=== PATIENT | male | born 1955 | race Caucasian/White ===

== ENCOUNTER 2025-02-14 14:47 | Emergency (ER) | payer MEDICARE, SELFPAY ==
--- NOTE | 2025-02-14 14:56 | ED_ITS ---
HPI - Wound/Laceration General Chief Complaint: Wound/Laceration Stated Complaint: Stitches Time Seen by Provider: 02/14/25 14:56 Source: patient Mode of arrival: ambulatory Limitations: no limitations History of Present Illness HPI narrative: Patient is a 69 year male who presents with concern for suture site infection. Patient states he had sutures placed on open fracture 6 weeks ago at [facility]. States the sutures were clear and he was not told that he needed to have them removed. Patient states it is now red, swollen, and tender to touch. Had [id number] use a scalpel and cut into tissue to try to find sutures to remove. Patient states some clear fluid drained from wound and felt better from the pressure relief. Is requesting further exploration of area to remove sutures Related Data Home Medications ?Medication ?Instructions ?Recorded ?Confirmed ?Last Taken ?Type paroxetine HCl 20 mg tablet mg PO 11/02/19 Unknown History atorvastatin 40 mg tablet mg 02/14/25 Unknown History meloxicam 15 mg tablet mg 02/14/25 Unknown History Allergies Allergy/AdvReac Type Severity Reaction Status Date / Time codeine Allergy Severe Swelling Verified 02/14/25 15:01 of Lip/Tongue/Throat Review of Systems 2 Review of Systems: All systems reviewed & are unremarkable except as noted in HPI and below Constitutional: Constitutional: Denies body ache(s), Denies chills, Denies fatigue, Denies fever(s), Denies headache(s), Denies malaise and Denies weakness Eyes: Eyes: Denies blurry vision, Denies irritation and Denies loss of vision ENT: Denies otalgia, Denies headache(s), Denies nasal discharge, Denies sinus pain and Denies sore throat Cardiovascular: Cardiovascular: Denies chest pain, Denies irregular heart rhythm and Denies dyspnea Respiratory: Respiratory: Denies dyspnea Gastrointestinal: Gastrointestinal: Denies abdominal pain, Denies melena, Denies hematochezia, Denies diarrhea, Denies nausea and Denies vomiting Musculoskeletal: Musculoskeletal: Denies back pain, Denies myalgias and Denies arthralgias Integumentary/Breasts: Skin/Breast: Denies pruritus, Denies rash and Reports wounds Neurologic: Denies headache(s), Denies loss of vision and Denies weakness Psychiatric: Psychiatric: Reports no additional psychiatric complaints Endocrine: Endocrine: Denies fatigue PMFSH Social History Social History Smoking status: Current every day smoker Comments At time of signature, agree with nursing past medical, surgical, social and family history. There is no relevant family history pertinent to the presenting complaint. Exam 2 Const: General: cooperative, healthy appearing, comfortable, no acute distress and well nourished Nutritional Appearance: well nourished O rientation/consciousness: patient oriented x3 Limitations: no limitations HENMT: Head: normal to inspection, normocephalic and atraumatic Ears: h earing grossly normal bilaterally and external ears normal Face/Nose/Sinus: N ormal external nose present, normal facial exam and face symmetric Face and sinus: normal facial exam and face symmetric Mouth: Yes lip normal Eyes: General: appearance normal, both eyes and all related structures A lignment and Position: alignment normal and position normal Periorbital: p eriorbital findings normal Eyelids: eyelids normal Pupils: Equal, round and reactive pupils present EOM: EOMs intact bilaterally Neck: Neck: normal visual inspection, full ROM and supple Chest: Chest palpation & inspection: normal inspection of the chest Resp: Effort & Inspection: normal respiratory effort and able to speak in complete sentences Auscultation: clear to auscultation bilaterally Cardio: Rate: regular rate Rhythm: regular rhythm Heart sounds: S1 normal heart sound present and S2 normal heart sound present GI: Inspection: normal to inspection Skin: General skin exam: normal color and no rashes or lesions noted Neuro: General: patient oriented x3 and moves all extremities Cranial nerves: Yes Equal, round and reactive pupils present Speech: normal speech Gait exam (Neuro): Normal gait present Extrem: General: normal to inspection, full ROM and no edema Right upper extremity: Extremity exam: right hand normal to inspection, normal capillary refill, neuromotor exam normal wrist extension normal, thumb opposition normal, thumb IP flexion normal, thumb ADduction normal and fingers 2-5 ABduction normal, neurosensory exam normal radial nerve sensory function normal, ulnar nerve sensory function normal, median nerve sensory function normal and digital nerve sensory function normal, tendon exam normal of all digits extensor tendon, flexor digitorum profundus and flexor digitorum superficialis, tenderness of the 3rd digit at the distal phalanx and at the DIP joint, vascular exam radial pulse present and normal capillary refill, normal ROM of fingers, warmth of the 3rd digit at the distal phalanx and at the DIP joint, swelling of the 3rd digit at the DIP joint and laceration 3rd digit dorsal aspect distal linear (1 cm), superficial, with motor nerve function intact and with sensation intact Hand/finger images: 1. 1 cm superficial laceration on top of previous suture site. Surrounding erythema, warmth and swelling. No active drainage, no sutures visualized Psych: Appearance: grossly normal and well kempt Mental Status: mental status grossly normal Speech and movement: Normal speech and movement present Affect: normal affect Attitude: cooperative Thought process: Normal thought process present Course Course Emergency Course: Patient is aware of diagnosis, understands and agrees to treatment plan. Anticipatory guidance given. Patient agrees to follow-up as directed and is aware of reasons to seek care at the emergency department. Portions of this record may have been created with voice recognition software Level of Care: Express Care Visit Vital Signs Vital signs: Reviewed MDM - Wound/Laceration MDM Narrative Medical decision making narrative: Patient states he had open fracture roughly 6 weeks ago and had sutures placed in right 3rd digit just distal of the DIP joint. 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 Patient states he had 3 to for white/clear sutures placed on right hand and was never told to have them removed. Patient states her skin has grown over sutures but he can still feel them inside. Reports it is not painful, warm to touch and red. Patient did not follow up after surgery and did not try to call surgeon office or PCP today. Patient took but upon himself to attempt to remove sutures himself. Laceration is superficial and not bleeding. Explained to patient the limitations of urgent care and that we would not be able to re-open wound to explore and remove possible sutures(no sutures visible). Explained that sutures are most likely dissolvable and they have not fully disolved at this time. Explained we will treat patient for infection. Referred patient to Dr. Moss. Patient states he is going fishing. I reiterated how important it is for wound to stay clean to prevent worsening or new infection. Patient states to he recovered and out of river water. Will cover patient on doxycycline and Augmentin along with providing Bactroban ointment. Pt well hydrated appearing, in no respiratory distress, hemodynamically stable. Recommend supportive care. The patient is stable at time of discharge the clinical impression was discussed and the patient was given the opportunity to ask questions, which were addressed as completely as possible given the information available at present. Anticipatory guidance and return to care precautions were discussed and the importance of primary care follow-up was stressed and encouraged. The patient voiced understanding of the plan, indications to return, and the need for follow-up. Exam findings show no acute concerns or changes Patient is appropriate for outpatient treatment and follow-up. Differential Diagnosis Differential diagnosis: Likely laceration and other Medical Records Attestation: I reviewed the patient's medical records. Discharge Plan Discharge Clinical Impression: Infected wound Patient Disposition: Home Condition: Stable Instructions: Wound Infection (ED) Additional Instructions: Clean wound daily and especially after fishing. You have been prescribed Doxycycline today.It may make your skin more sensitive to sunlight than normal. Make sure you wear sunscreen at all times when outside while on the medication. Wound dressed with topical Bacitracin and sterile gauze. Apply Bactroban after warm soaks BID. Take antibiotics as prescribed. Keep wound covered. Go to the emergency department if you have worsening redness, swelling or pus. Patient Language: [place]ar[place] Prescriptions: New doxycycline monohydrate 100 mg tablet 100 mg PO BID 10 Days Qty: 20 0RF amoxicillin-pot clavulanate 875-125 mg tablet 1 tablet PO Q12H 10 Days Qty: 20 0RF mupirocin 2 % ointment 1 applic topical BID Qty: 15 0RF No Action paroxetine HCl 20 mg tablet PO atorvastatin 40 mg tablet meloxicam 15 mg tablet Follow-up/Referrals: Dorian Mo MD [Physician] - 3 Days (Suture site infection on open wound.) Time of Disposition: 15:30
[2025-02-14 15:00] VITALS: BP 123/59; PULSE 86; RESP 18; TEMP 36.3; O2SAT 96
--- OUTSIDE RECORDS SUMMARY | 2025-02-14 15:17 | XMS_ITS | Clinical Summary ---
Author Organization [facility] Address [address] [place] [address] Care Team Providers Care Exhibitions Curator Name Role Phone Stanley Schuster MD Primary Care Provider + Allergies Active Allergy Reactions Criticality Noted Date Comments Codeine Swollen tongue High Medications PARoxetine (PAXIL) 20 mg tabletIndicatio ns:Anxiety with Depression Take 20 mg by mouth nightly Active MULTIVITAMIN ORALIndications :supplement Take 1 tablet by mouth every morning Active acetaminophen (TYLENOL) 325 mg tablet Take 650 mg by mouth every 6 (six) hours as needed for pain Active aspirin 81 mg chewable tablet Take 1 tablet (81 mg total) by mouth daily 30 tablet 08/27/2020 Active diazePAM (VALIUM) 10 mg tablet Take 1 tablet (10 mg total) by mouth every 12 (twelve) hours as needed for anxiety 30 tablet 08/29/2020 Active oxyCODONE (ROXICODONE) 5 mg immediate release tabletIndicatio ns:Pain Take 1 tablet (5 mg total) by mouth every 4 (four) hours as needed for pain 10 tablet 01/01/2025 Active Active Problems Problem Noted Date Diagnosed Date Basal cell carcinoma of nose 07/23/2020 Overview (07/23/2020): Added automatically from request for surgery [id number] Basal cell carcinoma of left side of nose 2019 Overview (06/16/2020): Added automatically from request for surgery [id number] 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 His blood pressure has returned to normal since analgesics were administered without requiring any antihypertensive therapy. Will continue to monitor blood pressure for now, would attempt pain control for further elevated BP readings before administering antihypertensive therapy. 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 Cholecystitis 11/26/2019 Overview (11/27/2019): Added automatically from request for surgery [id number] Non compliance w medication regimen 06/09/2018 Tobacco abuse 06/09/2018 Assessment & Plan (06/09/2018 12:50 PM CDT): couselled regarding tobacco / discussed low dose ct scan for lung cancer screening declines Routine physical examination 06/07/2018 Other male erectile dysfunction 06/07/2018 Anxiety 06/07/2018 Depression Assessment & Plan (11/27/2019 8:56 AM SUPERVISOR [employer]ACH[employer]): Can continue home Paxil. Smoking Assessment & Plan (11/27/2019 8:57 AM SUPERVISOR [employer]ACHINE): Encourage smoking cessation. Patient declined nicotine replacement therapy at this time, encouraged to inform staff if he changes his mind. Encounters Date Type Department Care Team Description 01/09/2025 Plan of Care Documentation [facility] Occupational Therapy [address] [place] [address] [place] [id number] 01/08/2025 3:05 PM [employer] Therapy [facility] Occupational Therapy [address] [place] [address] [address] [place] [id number] Sher Hager, OT Mallet finger of right finger(s) (Primary Dx) 01/08/2025 1:00 PM [employer] Office Visit [facility] Department of Surgery [address] [place] [address] [place] [phone] Dougie Corey MD Mallet finger of right finger(s) (Primary Dx); Displaced fracture of distal phalanx of left middle finger, initial encounter for open fracture 01/01/2025 5:44 PM [employer] - 01/01/2025 10:17 PM [facility] Emergency [facility] Emergency Department [address] [place] [address] Mihai Mehta MD Mallet finger of right finger(s) (Primary Dx); Displaced fracture of distal phalanx of left middle finger, initial encounter for open fracture Discharge Disposition: Discharge to home or self care 01/01/2025 10:09 AM [employer] - 01/01/2025 12:27 PM [facility] Emergency [facility] Emergency Department [address] [place] [address] Keith Ascencio MD Finger laceration, initial encounter (Primary Dx); Open displaced fracture of distal phalanx of left middle finger, initial encounter; Open displaced fracture of middle phalanx of right middle finger, initial encounter; Closed nondisplaced fracture of phalanx of right index finger, unspecified phalanx, initial encounter Discharge Disposition: Discharge to a short term hospital for IP from Last 3 Months Immunizations Immunization Administration Dates Next Due Tdap 01/01/2025 Surgical History Surgery Date Site/Laterality Comments CHOLECYSTECTOMY 11/28/2019 Medical History Medical History Date Comments Depression Smoking Basal cell carcinoma left nose Family History Medical History Relation Name Comments Heart attack Father Anesthesia problems Neg Hx Relation Name Status Comments Father Social History Tobacco Use Types Packs/Day Years Used Date Smoking Tobacco: Every Day Cigarettes 2 40 Smokeless Tobacco: Current Alcohol Use Standard Drinks/Week Comments Yes 12 (1 standard drink = 0.6 oz pu re alcohol) AUDIT-C Answer Date Recorded Frequency of Alcohol Consumption Never 11/26/2019 Average Number of Drinks Not on file 020 Frequency of Binge Drinking Not on file 11/08 Personal Safety Answer Date Recorded Have you ever been in or are you currently in a harmful physical or emotional relationship or is someone making you feel afraid or unsafe? Denies 01/01/2025 Sex and Gender Information Value Date Recorded Sex Assigned at Not on file Legal Sex Male 3:28 PM [employer] Gender Identity Not on file Sexual Orientation Not on file Obstetrics History Last Filed Vital Signs Vital Sign Reading Time Taken Comments Blood Pressure 127/85 01/01/2025 10:05 PM [employer] Pulse 84 01/01/2025 10:05 PM [employer] Temperature 36.7 C (98 F) 01/01/2025 6:05 PM [employer] Respiratory Rate 20 01/01/2025 10:05 PM [employer] Oxygen Saturation 97% 01/01/2025 10:05 PM [employer] Inhaled Oxygen Concentration - - Weight 103 kg (227 lb) 01/01/2025 2:30 PM [employer] Height 177.8 cm (5' 10 ) 01/01/2025 2:30 PM [employer] Body Mass Index 32.57 01/01/2025 2:30 PM [employer] Plan of Treatment Health Maintenance Due Date Last Done Comments Colon Cancer Screening-Colonoscopy 1957 Depression Screening 1957 Hepatitis C Screening 1957 Hepatitis B Screening 1975 Pneumococcal vaccine 65+ (1 of 2 - PCV) 1976 Lung Cancer Screening 2007 Zoster Vaccine (1 of 2) 2007 Prostate Cancer Screening-PSA 06/05/2020 06/05/2018 Fall Risk Assessment 08/27/2021 08/27/2020 Abdominal Aortic Aneurysm (AAA) Screen 2022 Well Visit 65+ 2022 07/16/2019, 06/07/2018 Influenza Vaccine (Season Ended) 2025 DTaP/Tdap/Td Vaccine (2 - Td or Tdap) 01/01/2035 Medical Devices Implanted Type Area Promotional Demonstrator Device Identifier Shelf Expiration Date Model / Serial / Lot [employer] Allian [address] [place] 2mm Ring Pin Ultrasonic Doppler 20mhz Fruit Cutter Anastomosis Latex Free - [id number] Implanted:Qty: 1 on 08/27/2020 by Rufino Garland III, MD at [facility] Left: Face [employer] Allian [id number] 06/26/2024 2752 / / [id number] Procedures Procedure Name Priority Date/Time Associated Diagnosis Comments XR HAND LEFT 3 OR MORE VIEWS ED 01/01/2025 11:13 AM [employer] XR HAND RIGHT 3 OR MORE VIEWS ED 01/01/2025 11:13 AM SUPERVISOR [employer] CT ABDOMEN PELVIS W CONTRAST ED 11/26/2019 5:21 PM [employer] PSA SCREEN Routine 06/05/2018 8:25 AM CDT Elevated prostate specific antigen (PSA) from Last 3 Months or Most Recently Relevant to Health Maintenance Results * XR Hand Right 3 or More Views (01/01/2025 11:13 AM SU[employer]) Anatomical Region Laterality Modality Upper Extremities, Hand Right Computed Radiography 01/01/2025 11:1 6 AM [employer] Narrative 01/01/2025 11:24 AM [employer] EXAM DESCRIPTION: XR HAND RIGHT 3 OR MORE VIEWS; XR HAND LEFT 3 OR MORE VIEWS REASON FOR STUDY: injury c/o a laceration to the left middle finger. Pt also has swelling to right middle finger. Pt had a cuellar slam down on his fingers TECHNIQUE: Three views of each hand are submitted for interpretation. COMPARISON: None available FINDINGS: Right hand: Mild radiocarpal osteoarthritis. Mild triscaphe osteoarthritis and thumb basal joint osteoarthritis. Mild polyarticular interphalangeal joint osteoarthritis.. There is an acute displaced fracture of the long finger distal phalanx dorsal base with intra-articular extension. Small calcific densities project dorsal to the ring finger and index finger distal phalanx bases, probably degenerative in etiology. There is lucency at the index finger dorsal phalanx base on the lateral view only, which could be superimposed lucency or a nondisplaced intra-articular fracture. Please correlate with point tenderness.. No radiopaque foreign body is seen. Left hand: Mild triscaphe and thumb basal joint osteoarthritis. Mild polyarticular interphalangeal joint osteoarthritis. There is a displaced and comminuted long finger distal phalanx tuft fracture with overlying soft tissue laceration. There is also a displaced long finger distal phalanx dorsal base fracture with intra-articular extension.. No radiopaque foreign body is seen. IMPRESSION: Displaced and comminuted left long finger distal phalanx tuft fracture with overlying soft tissue laceration. Displaced left long finger distal phalanx dorsal base fracture with intra-articular extension. Displaced right long finger distal phalanx dorsal base fracture with intra-articular extension. Lucency at the right index finger dorsal phalanx base on the lateral view only, which could be superimposed lucency or a nondisplaced intra-articular fracture. Please correlate with point tenderness. THIS IS AN ELECTRONICALLY VERIFIED FINAL REPORT 01/01/2025 11:24 AM - Electronically signed by Tristin Sosa M.D. MZ: LUIS Report ID: [id number] Reading Location: [id number] Procedure Note Tristin Sosa MD - 01/01/2025 EXAM DESCRIPTION: XR HAND RIGHT 3 OR MORE VIEWS; XR HAND LEFT 3 OR MOREVIEWS REASON FOR STUDY: injury c/o a laceration to the left middle finger. Pt also has swelling to right middle finger. Pt had a cuellar slam down on his fingers TECHNIQUE: Three views of each hand are submitted for interpretation. COMPARISON: None available FINDINGS: Right hand: Mild radiocarpal osteoarthritis. Mild triscaphe osteoarthritis and thumb basal joint osteoarthritis. Mild polyarticular interphalangeal joint osteoarthritis.. There is an acute displaced fracture of the long finger distal phalanx dorsal base with intra-articular extension. Small calcific densities project dorsal to the ring finger and index finger distalphalanx bases, probably degenerative in etiology. There is lucency at the index finger dorsal phalanx base on the lateral view only, which could be superimposed lucency or a nondisplaced intra-articular fracture. Please correlate with point tenderness.. No radiopaque foreign body is seen. Left hand: Mild triscaphe and thumb basal joint osteoarthritis. Mild polyarticular interphalangeal joint osteoarthritis. There is a displaced and comminuted long finger distal phalanx tuft fracture with overlying soft tissue laceration. There is also a displaced long finger distal phalanx dorsalbase fracture with intra-articular extension.. No radiopaque foreign body isseen. IMPRESSION: Displaced and comminuted left long finger distal phalanx tuft fracturewith overlying soft tissue laceration. Displaced left long finger distal phalanx dorsal base fracture with intra-articular extension. Displaced right long finger distal phalanx dorsal base fracture with intra-articular extension. Lucency at the right index finger dorsal phalanx base on the lateral view only, which could be superimposed lucency or a nondisplacedintra-articular fracture. Please correlate with point tenderness. THIS IS AN ELECTRONICALLY VERIFIED FINAL REPORT 01/01/2025 11:24 AM - Electronically signed by Tristin Sosa M.D. MZ: LUIS Report ID: [id number] Reading Location: [id number] Keith Ascencio MD IMG XR PROCEDURES Final Result * XR Hand Left 3 or More Views (01/01/2025 11:13 AM SUPER[employer]) Anatomical Region Laterality Modality Upper Extremities, Hand Left Computed Radiography 01/01/2025 11:1 6 AM [employer] Narrative 01/01/2025 11:24 AM [employer] EXAM DESCRIPTION: XR HAND RIGHT 3 OR MORE VIEWS; XR HAND LEFT 3 OR MORE VIEWS REASON FOR STUDY: injury c/o a laceration to the left middle finger. Pt also has swelling to right middle finger. Pt had a cuellar slam down on his fingers TECHNIQUE: Three views of each hand are submitted for interpretation. COMPARISON: None available FINDINGS: Right hand: Mild radiocarpal osteoarthritis. Mild triscaphe osteoarthritis and thumb basal joint osteoarthritis. Mild polyarticular interphalangeal joint osteoarthritis.. There is an acute displaced fracture of the long finger distal phalanx dorsal base with intra-articular extension. Small calcific densities project dorsal to the ring finger and index finger distal phalanx bases, probably degenerative in etiology. There is lucency at the index finger dorsal phalanx base on the lateral view only, which could be superimposed lucency or a nondisplaced intra-articular fracture. Please correlate with point tenderness.. No radiopaque foreign body is seen. Left hand: Mild triscaphe and thumb basal joint osteoarthritis. Mild polyarticular interphalangeal joint osteoarthritis. There is a displaced and comminuted long finger distal phalanx tuft fracture with overlying soft tissue laceration. There is also a displaced long finger distal phalanx dorsal base fracture with intra-articular extension.. No radiopaque foreign body is seen. IMPRESSION: Displaced and comminuted left long finger distal phalanx tuft fracture with overlying soft tissue laceration. Displaced left long finger distal phalanx dorsal base fracture with intra-articular extension. Displaced right long finger distal phalanx dorsal base fracture with intra-articular extension. Lucency at the right index finger dorsal phalanx base on the lateral view only, which could be superimposed lucency or a nondisplaced intra-articular fracture. Please correlate with point tenderness. THIS IS AN ELECTRONICALLY VERIFIED FINAL REPORT 01/01/2025 11:24 AM - Electronically signed by Tristin Sosa M.D. MZ: LUIS Report ID: [id number] Reading Location: [id number] Procedure Note Tristin Sosa MD - 01/01/2025 EXAM DESCRIPTION: XR HAND RIGHT 3 OR MORE VIEWS; XR HAND LEFT 3 OR MOREVIEWS REASON FOR STUDY: injury c/o a laceration to the left middle finger. Pt also has swelling to right middle finger. Pt had a cuellar slam down on his fingers TECHNIQUE: Three views of each hand are submitted for interpretation. COMPARISON: None available FINDINGS: Right hand: Mild radiocarpal osteoarthritis. Mild triscaphe osteoarthritis and thumb basal joint osteoarthritis. Mild polyarticular interphalangeal joint osteoarthritis.. There is an acute displaced fracture of the long finger distal phalanx dorsal base with intra-articular extension. Small calcific densities project dorsal to the ring finger and index finger distalphalanx bases, probably degenerative in etiology. There is lucency at the index finger dorsal phalanx base on the lateral view only, which could be superimposed lucency or a nondisplaced intra-articular fracture. Please correlate with point tenderness.. No radiopaque foreign body is seen. Left hand: Mild triscaphe and thumb basal joint osteoarthritis. Mild polyarticular interphalangeal joint osteoarthritis. There is a displaced and comminuted long finger distal phalanx tuft fracture with overlying soft tissue laceration. There is also a displaced long finger distal phalanx dorsalbase fracture with intra-articular extension.. No radiopaque foreign body isseen. IMPRESSION: Displaced and comminuted left long finger distal phalanx tuft fracturewith overlying soft tissue laceration. Displaced left long finger distal phalanx dorsal base fracture with intra-articular extension. Displaced right long finger distal phalanx dorsal base fracture with intra-articular extension. Lucency at the right index finger dorsal phalanx base on the lateral view only, which could be superimposed lucency or a nondisplacedintra-articular fracture. Please correlate with point tenderness. THIS IS AN ELECTRONICALLY VERIFIED FINAL REPORT 01/01/2025 11:24 AM - Electronically signed by Tristin Sosa M.D. MZ: MZ Report ID: [id number] Reading Location: [place] [address] Keith Ascencio MD IMG XR PROCEDURES Final Result * CT Abdomen Pelvis W Contrast (11/26/2019 5:21 PM SU[employer]) Anatomical Region Laterality Modality Body N/A Computed Tomogra phy 11/26/2019 5:21 PM [employer] Narrative 11/26/2019 6:22 PM [employer] PROCEDURE INFORMATION: Exam: CT Abdomen And Pelvis With Contrast Exam date and time: 11/26/2019 5:21 PM Age: 64 years old Clinical indication: Patient HX: Generalized abdominal pain since Tuesday vomited once; Additional info: Nausea/vomiting TECHNIQUE: Imaging protocol: Computed tomography of the abdomen and pelvis with intravenous contrast. Contrast material: [id number]; Contrast volume: 100 ml; Contrast route: IV; COMPARISON: None. FINDINGS: Lungs: There is atelectasis in the bilateral lung bases. Heart: No cardiomegaly. Liver: The liver is diffusely decreased in density, compatible with hepatic steatosis. Gallbladder and bile ducts: Gallbladder is distended with wall thickening measuring up to 7 mm and mild pericholecystic inflammatory changes. No biliary ductal dilatation. Pancreas: The pancreas is unremarkable. Spleen: The spleen is unremarkable. Adrenals: The adrenal glands are unremarkable. Kidneys and ureters: No hydronephrosis or nephrolithiasis. Stomach and bowel: There is colonic diverticulosis. No evidence of bowel obstruction. No pericolonic inflammatory stranding. Appendix: The appendix is normal. Intraperitoneal space: No significant peritoneal free fluid. No free peritoneal air. Vasculature: No aneurysmal dilation of the aorta. Lymph nodes: No adenopathy. Bladder: Bladder demonstrates wall thickening without associated inflammatory changes, compatible with chronic bladder outlet obstruction from prostatomegaly. Reproductive: There is prostatomegaly. Bones/joints: There is no significant spinal canal stenosis. There are multilevel degenerative changes in the spine. Soft tissues: Multiple small metallic fragments are seen in the soft tissue of the right pelvis. IMPRESSION: 1. Gallbladder is distended with wall thickening measuring up to 7 mm and mild pericholecystic inflammatory changes. Findings are concerning for acute cholecystitis. 2. Hepatic steatosis. 3. There is colonic diverticulosis. THIS DOCUMENT HAS BEEN ELECTRONICALLY SIGNED BY ELIE URIBE MD Procedure Note Elie Uribe MD - 11/26/2019 PROCEDURE INFORMATION: Exam: CT Abdomen And Pelvis With Contrast Exam date and time: 11/26/2019 5:21 PM Age: 64 years old Clinical indication: Patient HX: Generalized abdominal pain since Tuesday vomited once; Additional info: Nausea/vomiting TECHNIQUE: Imaging protocol: Computed tomography of the abdomen and pelvis with intravenous contrast. Contrast material: [id number]; Contrast volume: 100 ml; Contrast route: IV; COMPARISON: None. FINDINGS: Lungs: There is atelectasis in the bilateral lung bases. Heart: No cardiomegaly. Liver: The liver is diffusely decreased in density, compatible withhepatic steatosis. Gallbladder and bile ducts: Gallbladder is distended with wallthickening measuring up to 7 mm and mild pericholecystic inflammatory changes. Nobiliary ductal dilatation. Pancreas: The pancreas is unremarkable. Spleen: The spleen is unremarkable. Adrenals: The adrenal glands are unremarkable. Kidneys and ureters: No hydronephrosis or nephrolithiasis. Stomach and bowel: There is colonic diverticulosis. No evidence of bowel obstruction. No pericolonic inflammatory stranding. Appendix: The appendix is normal. Intraperitoneal space: No significant peritoneal free fluid. No freeperitoneal air. Vasculature: No aneurysmal dilation of the aorta. Lymph nodes: No adenopathy. Bladder: Bladder demonstrates wall thickening without associatedinflammatory changes, compatible with chronic bladder outlet obstruction from prostatomegaly. Reproductive: There is prostatomegaly. Bones/joints: There is no significant spinal canal stenosis. There are multilevel degenerative changes in the spine. Soft tissues: Multiple small metallic fragments are seen in the softtissue of the right pelvis. IMPRESSION: 1. Gallbladder is distended with wall thickening measuring up to 7 mm andmild pericholecystic inflammatory changes. Findings are concerning for acute cholecystitis. 2. Hepatic steatosis. 3. There is colonic diverticulosis. THIS DOCUMENT HAS BEEN ELECTRONICALLY SIGNED BY ELIE URIBE MD Bea James MD IMG CT PROCEDURES F inal Result * PSA screen (06/05/2018 8:25 AM CDT) PSA-Total 2.06 0.10 - 4.00 ng/mL [facility] Blood specimen (specimen) 06/05/2018 8:25 AM CDT 06/05/2018 9:13 PM CDT Narrative BERNARD - 06/05/2018 9:49 PM CDT Ochoa Dias MD LAB BLOOD ORDERABLES Final Result [facility] [id number] Department of Laboratories [place] [id number] from Last 3 Months or Most Recently Relevant to Health Maintenance Insurance [facility] HMO/PPO Address: [address] [address] [place] [address] [facility] CHOICE [facility] HMO/PPO Address: [id number] [place] [address] MEDICARE [facility] Address: [address] [address] [place] [address] [facility] [place] [address] MEDICARE [facility] [place] [address] Advance Directives For more information, please contact: [phone] * Full Code (Latest Code Status on File) Date Activated Date Inactivated Comments 11/27/2019 4:50 PM 11/30/2019 2:50 PM * Full Code Date Activated Date Inactivated Comments 11/26/2019 9:04 PM 11/27/2019 4:50 PM Care Teams Exhibitions Curator Relationship Specialty Start Date End Date Stanley Schuster MD [address] [place] [address] PCP - General 11/26/19
--- OUTSIDE RECORDS SUMMARY | 2025-02-14 15:17 | XMS_ITS | Referral Summary ---
Author Organization [facility] Address [address] [place] [address] Care Team Providers Care Forest Fire Fighter Name Role Phone Stanley Schuster MD Primary Care Provider + Encounters Date Type Department Care Team Description 01/09/2025 Plan of Care Documentation [facility] Occupational Therapy [address] [place] [address] [phone] 01/08/2025 3:05 PM SAFETY COMPLIANCE SPECIALIST Therapy [facility] Occupational Therapy [address] [place] [phone] Sher Hager OT Mallet finger of right finger(s) (Primary Dx) 01/08/2025 1:00 PM SAFETY COMPLIANCE SPECIALIST Office Visit [facility] Department of Surgery [address] [place] [phone] Dougie Corey MD Mallet finger of right finger(s) (Primary Dx); Displaced fracture of distal phalanx of left middle finger, initial encounter for open fracture 01/01/2025 5:44 PM SAFETY COMPLIANCE SPECIALIST - 01/01/2025 10:17 PM SAFETY COMPLIANCE SPECIALIST Emergency [facility] Emergency Department [address] [place] [address] Mihai Mehta MD Mallet finger of right finger(s) (Primary Dx); Displaced fracture of distal phalanx of left middle finger, initial encounter for open fracture Discharge Disposition: Discharge to home or self care 01/01/2025 10:09 AM SAFETY COMPLIANCE SPECIALIST - 01/01/2025 12:27 PM SAFETY COMPLIANCE SPECIALIST Emergency [facility] Emergency Department [address] [place] [address] Keith Ascencio MD Finger laceration, initial encounter (Primary Dx); Open displaced fracture of distal phalanx of left middle finger, initial encounter; Open displaced fracture of middle phalanx of right middle finger, initial encounter; Closed nondisplaced fracture of phalanx of right index finger, unspecified phalanx, initial encounter Discharge Disposition: Discharge to a short term hospital for IP from Last 3 Months Allergies Active Allergy Reactions Criticality Noted Date [...] (07/23/2020): Added automatically from request for surgery [id number] Basal cell carcinoma of left side of nose 2019 Overview (06/16/2020): Added automatically from request for surgery [id number] Neoplasm of soft tissue 05/16/2020 Lesion of nose 05/16/2020 Elevated blood pressure reading 11/27/2019 Assessment & Plan (11/27/2019 8:56 AM SAFETY COMPLIANCE SPECIALIST): The patient's elevated blood pressure on arrival was due to the acute pain of his presenting cholecystitis. His blood pressure has returned to normal since analgesics were administered without requiring any antihypertensive therapy. Will continue to monitor blood pressure for now, would attempt pain control for further elevated BP readings before administering antihypertensive therapy. Acute cholecystitis 11/27/2019 Assessment & Plan (11/27/2019 8:58 AM SAFETY COMPLIANCE SPECIALIST): Cholecystectomy planned this afternoon per surgery. Cholecystitis 11/26/2019 Overview (11/27/2019): Added automatically from request for surgery [id number] Non compliance w medication regimen 06/09/2018 Tobacco abuse 06/09/2018 Assessment & Plan (06/09/2018 12:50 PM CDT): couselled regarding tobacco / discussed low dose ct scan for lung cancer screening declines Routine physical examination 06/07/2018 Other male erectile dysfunction 06/07/2018 Anxiety 06/07/2018 Depression Assessment & Plan (11/27/2019 8:56 AM SAFETY COMPLIANCE SPECIALIST): Can continue home Paxil. Smoking Assessment & Plan (11/27/2019 8:57 AM SAFETY COMPLIANCE SPECIALIST): Encourage smoking cessation. Patient declined nicotine replacement therapy at this time, encouraged to inform staff if he changes his mind. Immunizations Immunization Administration Dates Next Due Tdap 01/01/2025 Social History Tobacco Use Types Packs/Day Years [...] on file Legal Sex Male 3:28 PM SAFETY COMPLIANCE SPECIALIST Gender Identity Not on file Sexual Orientation Not on file Last Filed Vital Signs Vital Sign Reading Time Taken Comments Blood Pressure 127/85 01/01/2025 10:05 PM SAFETY COMPLIANCE SPECIALIST Pulse 84 01/01/2025 10:05 PM SAFETY COMPLIANCE SPECIALIST Temperature 36.7 C (98 F) 01/01/2025 6:05 PM SAFETY COMPLIANCE SPECIALIST Respiratory Rate 20 01/01/2025 10:05 PM SAFETY COMPLIANCE SPECIALIST Oxygen Saturation 97% 01/01/2025 10:05 PM SAFETY COMPLIANCE SPECIALIST Inhaled Oxygen Concentration - - Weight 103 kg (227 lb) 01/01/2025 2:30 PM SAFETY COMPLIANCE SPECIALIST Height 177.8 cm (5' 10 ) 01/01/2025 2:30 PM SAFETY COMPLIANCE SPECIALIST Body Mass Index 32.57 01/01/2025 2:30 PM SAFETY COMPLIANCE SPECIALIST Plan of Treatment Not on file Medical Devices Implanted Type Area Panelbeater Device Identifier Shelf Expiration Date Model / Serial / Lot [employer] Allian 2752 Leonore 2mm Ring Pin Ultrasonic Doppler 20mhz Dry Box Operator Anastomosis Latex Free - [id number] Implanted:Qty: 1 on 08/27/2020 by Rufino Garland III, MD at [facility] Left: Face [employer] Allian [id number] 06/26/2024 2752 / / [id number] Procedures Procedure Name Priority Date/Time Associated Diagnosis Comments XR HAND LEFT 3 OR MORE VIEWS ED 01/01/2025 11:13 AM SAFETY COMPLIANCE SPECIALIST XR HAND RIGHT 3 OR MORE VIEWS ED 01/01/2025 11:13 [address]AFETY COMPLIANCE [address] CT ABDOMEN PELVIS W CONTRAST ED 11/26/2019 5:21 PM SAFETY COMPLIANCE SPECIALIST PSA SCREEN Routine 06/05/2018 8:25 AM CDT Elevated prostate specific antigen (PSA) from Last 3 Months or Most Recently Relevant to Health Maintenance Results * XR Hand Right 3 or More Views (01/01/2025 11:13 AM SAFETY COMPLIANCE SPECIALIST) Anatomical Region Laterality Modality Upper Extremities, Hand Right Computed Radiography 01/01/2025 11:1 6 AM SAFETY COMPLIANCE SPECIALIST Narrative 01/01/2025 11:24 AM SAFETY COMPLIANCE SPECIALIST EXAM DESCRIPTION: XR HAND RIGHT 3 OR [...] Tristin Sosa M.D. MZ: LUIS Report ID: [id number] Reading Location: [id number] Procedure Note Tristin Sosa MD - 01/01/2025 [...] Tristin Sosa M.D. MZ: LUIS Report ID: [id number] Reading Location: [id number] Keith Ascencio MD IMG XR PROCEDURES Final Result * XR Hand Left 3 or More Views (01/01/2025 11:13 AM SAFETY COMPLIANCE SPECIALIST) Anatomical Region Laterality Modality Upper Extremities, Hand Left Computed Radiography 01/01/2025 11:1 6 AM SAFETY COMPLIANCE SPECIALIST Narrative 01/01/2025 11:24 AM SAFETY COMPLIANCE SPECIALIST EXAM DESCRIPTION: XR HAND RIGHT 3 OR [...] Tristin Sosa M.D. MZ: LUIS Report ID: [id number] Reading Location: [place] [address] Procedure Note Tristin Sosa MD - 01/01/2025 [...] Tristin Sosa M.D. MZ: LUIS Report ID: [id number] Reading Location: [id number] Keith Ascencio MD IMG XR PROCEDURES Final Result * CT Abdomen Pelvis W Contrast (11/26/2019 5:21 PM SAFETY COMPLIANCE SPECIALIST) Anatomical Region Laterality Modality Body N/A Computed Tomogra phy 11/26/2019 5:21 PM SAFETY COMPLIANCE SPECIALIST Narrative 11/26/2019 6:22 PM SAFETY COMPLIANCE SPECIALIST PROCEDURE INFORMATION: Exam: CT Abdomen And Pelvis With Contrast Exam date and time: 11/26/2019 5:21 PM Age: 64 years old Clinical indication: Patient HX: Generalized abdominal pain since Tuesday vomited once; Additional info: Nausea/vomiting TECHNIQUE: Imaging protocol: Computed tomography of the abdomen and pelvis with intravenous contrast. Contrast material: [id number]; Contrast volume: 100 ml; Contrast route: IV; [...] and pelvis with intravenous contrast. Contrast material: [id number]; Contrast volume: 100 ml; Contrast route: IV; [...] BY ELIE URIBE MD Bea James MD IM CT PROCEDURES F inal Result * PSA screen (06/05/2018 8:25 AM CDT) PSA-Total 2.06 0.10 - 4.00 ng/mL [facility] Blood specimen (specimen) 06/05/2018 8:25 AM CDT 06/05/2018 9:13 PM CDT Narrative [facility] - 06/05/2018 9:49 PM CDT Ochoa Dias MD LAB BLOOD ORDERABLES Final Result Performing Organization Address City/State/[facility] Co dc Phone Number [facility] [address] Department [place] [address] from Last 3 Months or Most Recently Relevant to Health Maintenance Insurance [facility] CHOICE PLUS [facility] CHOICE PLUS MEDICARE [facility] MEDICARE [facility] [place] [id number] Advance Directives For more information, please contact: [phone] * Full Code (Latest Code Status on File) Date Activated Date Inactivated Comments 11/27/2019 4:50 PM 11/30/2019 2:50 PM * Full Code Date Activated Date Inactivated Comments 11/26/2019 9:04 PM 11/27/2019 4:50 PM Care Teams Forest Fire Fighter Relationship Specialty Start Date End Date Stanley Schuster MD [address] [facility] [place], [place] [address] PCP - General 11/26/19
--- OUTSIDE RECORDS SUMMARY | 2025-02-14 15:17 | XMS_ITS ---
Author Organization [facility] Address [address] [place] [address] Care Team Providers Care Anchor Operator Name Role Phone Stanley Schuster MD Primary Care Provider + Active Problems Problem Noted Date Diagnosed Date Basal cell carcinoma of nose 07/23/2020 Overview (07/23/2020): Added automatically from request for surgery [id number] Basal cell carcinoma of left side of nose 2019 Overview (06/16/2020): Added automatically from request for surgery [id number] Neoplasm of soft tissue 05/16/2020 Lesion of nose 05/16/2020 Elevated blood pressure reading 11/27/2019 Assessment & Plan (11/27/2019 8:56 AM GM): The patient's elevated blood pressure on arrival was due to the acute pain of his presenting cholecystitis. His blood pressure has returned to normal since analgesics were administered without requiring any antihypertensive therapy. Will continue to monitor blood pressure for now, would attempt pain control for further elevated BP readings before administering antihypertensive therapy. Acute cholecystitis 11/27/2019 Assessment & Plan (11/27/2019 8:58 AM GM): Cholecystectomy planned this afternoon per surgery. Cholecystitis 11/26/2019 Overview (11/27/2019): Added automatically from request for surgery [id number] Non compliance w medication regimen 06/09/2018 Tobacco abuse 06/09/2018 Assessment & Plan (06/09/2018 12:50 PM CDT): couselled regarding tobacco / discussed low dose ct scan for lung cancer screening declines Routine physical examination 06/07/2018 Other male erectile dysfunction 06/07/2018 Anxiety 06/07/2018 Depression Assessment & Plan (11/27/2019 8:56 AM GM): Can continue home Paxil. Smoking Assessment & Plan (11/27/2019 8:57 AM GM): Encourage smoking cessation. Patient declined nicotine replacement therapy at this time, encouraged to inform staff if he changes his mind. Current Treatment and Therapy Plans No current plan information found. Past Treatment and Therapy Plans No past plan information found. Lifetime Dose Tracking * Chemical Lifetime Dose Automatic Entry Manual Entr y Fluoro Time 2.577 minutes 2.577 minutes 0 minutes Air kerma at the reference point (Ka,r) 60.99 mGy 6 0.99 mGy 0 mGy
--- OUTSIDE RECORDS SUMMARY | 2025-02-14 15:17 | XMS_ITS | Encounter Summary ---
Author Organization [facility] Address [address] [place] [address] Phone Care Team Providers Care Computer Forwarding System Markup Clerk Name Role Phone Ochoa Dias MD Primary Care Provider [phone] No, Physician Primary Care Provider [phone] Stanley Schuster MD Primary Care Provider + Encounter Details Date Type Department Care Team (Late st Contact Info) Description 07/18/2017 Orders Only [facility] [address] [place] [address] Ochoa Dias MD [address] [place] [address] [place] [address] Elevated prostate specific antigen (PSA) (Primary Dx); Routine lab draw Social History Tobacco Use Types Packs/Day Years Used Date Smoking Tobacco: Never Assessed Sex and Gender Information Value Date Recorded Sex Assigned at Not on file Legal Sex Male 3:28 PM SENIOR MOBILE APPLICATION DEVELOPER Gender Identity Not on file Sexual Orientation Not on file documented as of this encounter Plan of Treatment Not on file documented as of this encounter Results * PSA screen (06/05/2018 8:25 AM CDT) PSA-Total 2.06 0.10 - 4.00 ng/mL [facility] Blood specimen (specimen) 06/05/2018 8:25 AM CDT 06/05/2018 9:13 PM CDT Narrative [facility] - 06/05/2018 9:49 PM CDT Ochoa Dias MD LAB BLOOD ORDERABLES Final Result [facility] [address] Department [place] [address] * (ABNORMAL) Lipid panel (06/05/2018 8:25 AM CDT) Cholesterol 209(H) 100 - 200 mg/dL [facility] Comment: Interpretive Data Desirable: <200 mg/dL Borderline high: 200-239 mg/dL High: >240 mg/dL Current interpretive data was last revised on 2016. Triglycerides 213(H) 10 - 150 mg/dL [facility] Comment: Interpretive Data Desirable: < 150 mg/dL Borderline High: 150 - 199 mg/dL High: 200 - 499 mg/dL Very High: > or = 499 mg/dL Current interpretive data was last revised on 2016. HDL 40 40 - 59 mg/dL [facility] Comment: Interpretive Data Less than 40 mg/dL - Low; A major risk factor for heart disease. Greater than or equal to 60 mg/dL - High; Considered protective of heart disease. Current interpretive data was last revised on 2016. LDL, calculated 126 60 - 129 mg/dL [facility] Comment: Interpretive Data Optimal: < 100 mg/dL Near Optimal: 100 - 129 mg/dL Borderline High: 130 - 159 mg/dL High: > 160 mg/dL Current interpretive data was last revised on 2016. Non-HDL Cholesterol 169 mg/dL [facility] Comment: Interpretive Data When triglycerides are >200 mg/dL, non-HDL C is a secondary target of therapy, with a goal 30 mg/dL higher than the identified LDL-C goal. Current interpretive data was last revised 2016. Blood specimen (specimen) 06/05/2018 8:25 AM CDT 06/05/2018 9:13 PM CDT Narrative [facility] - 06/05/2018 9:44 PM CDT Ochoa Dias MD LAB BLOOD ORDERABLES Final Result [facility] [address] Department of Laboratories [place] [id number] * Comprehensive metabolic panel (06/05/2018 8:25 AM CDT) Sodium 142 135 - 145 mmol/L [facility] Potassium, pl 4.8 3.5 - 5.1 mmol/L [facility] Chloride 105 100 - 114 mmol/L [facility] CO2 27 22 - 32 mmol/L [facility] Anion gap 15 8 - 16 mmol/L [facility] BUN 11 8 - 24 mg/dL [facility] Creatinine 0.75 0.70 - 1.40 mg/dL [facility] Glucose 92 70 - 199 mg/dL [facility] Comment: Interpretive Data Fasting glucose >/= 126 mg/dl is diagnostic for diabetes. Fasting is defined as no caloric intake for at least 8 hours. Fasting glucose between 100 mg/dl to 125 mg/dl is diagnostic of prediabetes. In a patient with classic symptoms of hyperglycemia or hyperglycemic crisis, a random glucose >/= 200 mg/dl is diagnostic for diabetes. In the absence of unequivocal hyperglycemia, results should be confirmed by repeat testing. The classification and Diagnosis of Diabetes Diabetes Care 2017;40 (Suppl. 1):S11. Current interpretive data was last revised 2017. Calcium 9.5 8.4 - 10.5 mg/dL [facility] Bilirubin, total 0.60 0.10 - 1.30 mg/dL [facility] Protein, pl 6.7 6.0 - 8.3 g/dL [facility] Albumin 3.9 3.2 - 4.8 g/dL [facility] Alk phos 52 30 - 110 Units/L [facility] ALT 21 5 - 50 Units/L [facility] AST 21 7 - 40 Units/L [facility] Blood specimen (specimen) 06/05/2018 8:25 AM CDT 06/05/2018 9:13 PM CDT Narrative [facility] - 06/05/2018 9:44 PM CDT Ochoa Dias MD LAB BLOOD ORDERABLES Final Result Performing Organization Address City/[facility]/ZIP Co de Phone Number [facility] [address] Department [place] [address] * (ABNORMAL) CBC with auto differential (06/05/2018 8:25 AM CDT) WBC 6.7 3.8 - 9.9 K/cumm [facility] Hgb 16.3 13.0 - 17.5 g/dL [facility] Hct 50.6(H) 38.9 - 50.3 % [facility] Plt 203 150 - 400 K/cumm [facility] MPV 11.0 9.1 - 12.3 fL [facility] RBC 5.22 4.30 - 5.80 M/cumm [facility] MCV 96.9(H) 81.3 - 96.4 fL [facility] MCH 31.2 27.1 - 33.3 pg [facility] MCHC 32.2(L) 32.3 - 35.7 g/dL [facility] RDW CV 13.7 11.1 - 14.9 % [facility] RDW SD 49.4(H) 35.7 - 48.1 fL [facility] NRBC abs 0.02(H) 0.00 - 0.01 K/cumm [facility] CH Blood specimen (specimen) 06/05/2018 8:25 AM CDT 06/05/2018 9:13 PM CDT Narrative [facility] - 06/05/2018 9:41 PM CDT Ochoa Dias MD LAB BLOOD ORDERABLES Final Result Performing Organization Address City/[facility]/ZIP Co de Phone Number [facility] ARVIZU [address] Department [place] [address] documented in this encounter Visit Diagnoses Diagnosis Elevated prostate specific antigen (PSA)- Primary Routine lab draw Elevated prostate specific antigen (PSA) Routine lab draw documented in this encounter Care Teams Computer Forwarding System Markup Clerk Relationship Specialty Start Date End Date Ochoa Dias MD [address] [place] [address] PCP - General 02/04/17 08/21/19 No, Physician PCP - General 08/22/19 11/25/19 Stanley Schuster MD [address] [facility] [place] [address] PCP - General 11/26/19 documented as of this encounter
== END 2025-02-14 15:34 | disposition home or self-care (01) ==
PROVIDERS: Emergency Provider Nurse Practitioner Family
DX: S61.212A Laceration without foreign body of right middle finger without damage to nail, initial encounter (principal); L08.9 Local infection of the skin and subcutaneous tissue, unspecified; W26.8XXA Contact with other sharp object(s), not elsewhere classified, initial encounter; E78.00 Pure hypercholesterolemia, unspecified; F17.200 Nicotine dependence, unspecified, uncomplicated
CPT/HCPCS: 99213; G0463

== ENCOUNTER 2025-04-18 17:26 | Emergency (ER) | payer MEDICARE, OTHER, SELFPAY ==
--- NOTE | ~2025-04-18 | XR_ITS ---
XR wrist LT min 3V Ordering provider: Nas Beard MD History: . left wrist pain and swelling . Comparison: None. FINDINGS: BONES: Comminuted fracture in the distal metaphysis of the left radius with extension to the joint sp scot. JOINT SPACES: Well maintained. SOFT TISSUES: Normal. IMPRESSION: Fracture distal metaphysis of the left radius. Reviewed, dictated and finalized at location A.
--- NOTE | ~2025-04-18 | CT_ITS ---
CT cervical spine wo con Ordering provider: Nas Beard MD History: . head and neck injury . Comparison: None. Technique: CT of the cervical spine was performed without contrast. Sagittal and coronal reformatted images were also obtained and reviewed. Automated exposure control and iterative reconstruction [place] hnique were employed. The dose-length product was 681.00 mGy-cm. 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 No other definite abnormality seen in C1. No subluxation or acute fracture. The occipital condyles are intact. Degenerative changes of the spine. Dextroscoliosis. DISC SPACES: Narrowing of the disc C5-C6 and C6-C7. Narrowing of the left foramen and with compressio n at the level of C2-C3.. Narrowing of the left foramina and the root compression seen at the level o f C3-C4. Bilateral narrowing of the foramina with root compression at the level of C5-C6 and C6-C7. PARASPINOUS SOFT TISSUES: Normal. IMPRESSION: No acute osseous abnormality cervical spine. 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 Evaluation for tenderness in the area is advised. Multilevel degenerative disc disease with multilevel narrowing of the foramina. Reviewed, dictated and finalized at location A. IMPRESSION: No acute osseous abnormality cervical spine. 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 Evaluat ion for tenderness in the area is advised. Multilevel degenerative disc disease with multilevel narrowing of the foramina.
--- NOTE | ~2025-04-18 | CT_ITS ---
CT brain wo con Ordering provider: Nas Beard MD History: 69 years Male with . head and neck injury . Comparison: None. Technique: CT of the head without contrast. Radiation reduction technique utilized.The dose-length product was 681 mGy-cm. FINDINGS: BRAIN PARENCHYMA AND CSF SPACES: Mild leukoaraiosis and diffuse cortical atrophy. Mild atheromatous d isease. 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 No midline shift, mass effect or hemorrhage. The bra in parenchyma and CSF spaces are otherwise normal. 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 Left maxillary sinus disease. Oth erwise, Well aerated. MASTOIDS: Well aerated. BONES: The bones appear intact. SOFT TISSUES: Visualized nasopharynx is normal. Superficial soft tissues are normal. IMPRESSION: No acute intracranial findings. Reviewed, dictated and finalized at location A.
--- OUTSIDE RECORDS SUMMARY | 2025-04-18 17:28 | XMS_ITS | Clinical Summary ---
Author Organization [facility] Address [address] [place] [address] Care Team Providers Care Corporate Specialist Name Role Phone Stanley Schuster MD Primary [...] (07/23/2020): Added automatically from request for surgery [id number] Basal cell carcinoma of left side of nose 2019 Overview (06/16/2020): Added automatically from request for surgery [id number] Neoplasm of soft tissue 05/16/2020 Lesion of nose 05/16/2020 Elevated blood pressure reading 11/27/2019 Assessment & Plan (11/27/2019 8:56 AM ELECTRIC APPLIANCE INSTALLER): The patient's elevated blood pressure on arrival was due to the acute pain of his presenting cholecystitis. His blood pressure has returned to normal since analgesics were administered without requiring any antihypertensive therapy. Will continue to monitor blood pressure for now, would attempt pain control for further elevated BP readings before administering antihypertensive therapy. Acute cholecystitis 11/27/2019 Assessment & Plan (11/27/2019 8:58 AM ELECTRIC APPLIANCE INSTALLER): Cholecystectomy planned this afternoon per surgery. Cholecystitis 11/26/2019 Overview (11/27/2019): Added automatically from request for surgery [id number] Non compliance w medication regimen 06/09/2018 Tobacco abuse 06/09/2018 Assessment & Plan (06/09/2018 12:50 PM CDT): couselled regarding tobacco / discussed low dose ct scan for lung cancer screening declines Routine physical examination 06/07/2018 Other male erectile dysfunction 06/07/2018 Anxiety 06/07/2018 Depression Assessment & Plan (11/27/2019 8:56 AM ELECTRIC APPLIANCE INSTALLER): Can continue home Paxil. Smoking Assessment & Plan (11/27/2019 8:57 AM ELECTRIC APPLIANCE INSTALLER): Encourage smoking cessation. Patient declined nicotine replacement [...] on file Legal Sex Male 3:28 PM ELECTRIC APPLIANCE INSTALLER Gender Identity Not on file Sexual Orientation Not on file Obstetrics History Last Filed Vital Signs Vital Sign Reading Time Taken Comments Blood Pressure 127/85 01/01/2025 10:05 PM ELECTRIC APPLIANCE INSTALLER Pulse 84 01/01/2025 10:05 PM ELECTRIC APPLIANCE INSTALLER Temperature 36.7 C (98 F) 01/01/2025 6:05 PM ELECTRIC APPLIANCE INSTALLER Respiratory Rate 20 01/01/2025 10:05 PM ELECTRIC APPLIANCE INSTALLER Oxygen Saturation 97% 01/01/2025 10:05 PM ELECTRIC APPLIANCE INSTALLER Inhaled Oxygen Concentration - - Weight 103 kg (227 lb) 01/01/2025 2:30 PM ELECTRIC APPLIANCE INSTALLER Height 177.8 cm (5' 10) 01/01/2025 2:30 PM ELECTRIC APPLIANCE INSTALLER Body Mass Index 32.57 01/01/2025 2:30 PM ELECTRIC APPLIANCE INSTALLER Plan of Treatment Health Maintenance Due Date [...] Tdap) 01/01/2035 Medical Devices Implanted Type Area Patient Access Registrar Device Identifier Shelf Expiration Date Model / Serial / Lot [employer] 2752 [place] 2mm Ring Pin Ultrasonic Doppler 20mhz Activity Therapist Anastomosis Latex Free - [id number] Implanted:Qty: 1 on 08/27/2020 by Rufino Garland III, MD at [facility] Left: Face IceWEBian [id number] 06/26/2024 2752 / / [id number] Procedures Procedure Name Priority Date/Time Associated Diagnosis Comments CT ABDOMEN PELVIS W CONTRAST ED 11/26/2019 5:21 PM ELECTRIC APPLIANCE INSTALLER PSA SCREEN Routine 06/05/2018 8:25 AM CDT Elevated prostate specific antigen (PSA) from Last 3 Months or Most Recently Relevant to Health Maintenance Results * CT Abdomen Pelvis W Contrast (11/26/2019 5:21 PM ELECTRIC APPLIANCE INSTALLER) Anatomical Region Laterality Modality Body N/A Computed Tomogra phy 11/26/2019 5:21 PM ELECTRIC APPLIANCE INSTALLER Narrative 11/26/2019 6:22 PM ELECTRIC APPLIANCE INSTALLER PROCEDURE INFORMATION: Exam: CT Abdomen And Pelvis With Contrast Exam date and time: 11/26/2019 5:21 PM Age: 64 years old Clinical indication: Patient HX: Generalized abdominal pain since Tuesday vomited once; Additional info: Nausea/vomiting TECHNIQUE: Imaging protocol: Computed tomography of the abdomen and pelvis with intravenous contrast. Contrast material: [id number]; Contrast volume: 100 ml; Contrast route: IV; [...] and pelvis with intravenous contrast. Contrast material: [id number]; Contrast volume: 100 ml; Contrast route: IV; [...] BEEN ELECTRONICALLY SIGNED BY ELIE URIBE MD us Bea James MD IMG CT PROCEDURES F inal Result * PSA screen (06/05/2018 8:25 AM CDT) PSA-Total 2.06 0.10 - 4.00 ng/mL [facility] Blood specimen (specimen) 06/05/2018 8:25 AM CDT 06/05/2018 9:13 PM CDT Narrative [facility] - 06/05/2018 9:49 PM CDT us Ochoa Dias MD LAB BLOOD ORDERABLES Final Result [facility] [address] Department [place] [address] from Last 3 Months or Most Recently Relevant to Health Maintenance Insurance [facility] CHOICE PLUS [facility] HMO/PPO Address: [facility] [address] [place] [address] [facility] CHOICE PLUS [facility] HMO/PPO Address: [address] [address] [place] [address] MEDICARE [facility] Address: [facility] [address] [place] [address] [facility] [place] [address] MEDICARE [facility] [place] [address] Advance Directives For more information, please contact: [phone] * Full Code (Latest Code Status on File) Date Activated Date Inactivated Comments 11/27/2019 4:50 PM 11/30/2019 2:50 PM * Full Code Date Activated Date Inactivated Comments 11/26/2019 9:04 PM 11/27/2019 4:50 PM Care Teams Corporate Specialist Relationship Specialty Start Date End Date Stanley Schuster MD [address] [facility] [place] [address] PCP - General 11/26/19
--- OUTSIDE RECORDS SUMMARY | 2025-04-18 17:28 | XMS_ITS | Encounter Summary ---
Author Organization [facility] Address [address] [place] [address] Phone Care Team Providers Care Java Software Engineer Name Role Phone Ochoa Dias MD Primary Care Provider [phone] No, Physician Primary Care Provider [phone] Stanley Schuster MD Primary Care Provider + Encounter Details Date Type Department Care Team (Late st Contact Info) Description 07/18/2017 Orders Only [facility] [address] [place] [address] Ochoa Dias MD [address] [place] [address] [place] [address] Elevated prostate specific antigen (PSA) (Primary Dx); Routine lab draw Social History Tobacco Use Types Packs/Day Years Used Date Smoking Tobacco: Never Assessed Sex and Gender Information Value Date Recorded Sex Assigned at Not on file Legal Sex Male 3:28 PM RN L AND D Gender Identity Not on file Sexual Orientation Not on file documented as of this encounter Plan of Treatment Not on file documented as of this encounter Results * PSA screen (06/05/2018 8:25 AM CDT) PSA-Total 2.06 0.10 - 4.00 ng/mL [facility] Blood specimen (specimen) 06/05/2018 8:25 AM CDT 06/05/2018 9:13 PM CDT Narrative [facility] - 06/05/2018 9:49 PM CDT Ochoa Dias MD LAB BLOOD ORDERABLES Final Result [facility] [id number] Department [place] [address] * (ABNORMAL) Lipid panel (06/05/2018 8:25 AM [...] Dias MD LAB BLOOD ORDERABLES Final Result [facility] [id number] [address] Department of Laboratories [place] [id number] * Comprehensive metabolic panel (06/05/2018 8:25 AM [...] City/[facility]/ZIP Co de Phone Number [facility] [phone] [address] [place] [address] * (ABNORMAL) CBC with auto differential (06/05/2018 8:25 AM CDT) WBC 6.7 3.8 - 9.9 K/cumm [facility] Hgb 16.3 13.0 - 17.5 g/dL [facility] Hct 50.6(H) 38.9 - 50.3 % [facility] Plt 203 150 - 400 K/cumm [facility] MPV 11.0 9.1 - 12.3 fL [facility] RBC 5.22 4.30 - 5.80 M/cumm [facility] MCV 96.9(H) 81.3 - 96.4 fL [facility] MCH 31.2 27.1 - 33.3 pg [facility] MCHC 32.2(L) 32.3 - 35.7 g/dL [facility] RDW CV 13.7 11.1 - 14.9 % [facility] RDW SD 49.4(H) 35.7 - 48.1 fL [facility] NRBC abs 0.02(H) 0.00 - 0.01 K/cumm [facility] Blood specimen (specimen) 06/05/2018 8:25 AM CDT 06/05/2018 9:13 PM CDT Narrative [facility] - 06/05/2018 9:41 PM CDT Ochoa Dias MD LAB BLOOD ORDERABLES Final Result Performing Organization Address City/[facility]/ZIP Co de Phone Number [facility] Department [place] [address] documented in this encounter Visit Diagnoses Diagnosis Elevated prostate specific antigen (PSA)- Primary Routine lab draw Elevated prostate specific antigen (PSA) Routine lab draw documented in this encounter Care Teams Java Software Engineer Relationship Specialty Start Date End Date Ochoa Dias MD [address] [place] [address] PCP - General 02/04/17 08/21/19 No, Physician PCP - General 08/22/19 11/25/19 Stanley Schuster MD [address] [facility] [place] [address] PCP - General 11/26/19 documented as of this encounter
--- OUTSIDE RECORDS SUMMARY | 2025-04-18 17:28 | XMS_ITS | Referral Summary ---
Author Organization [facility] Address [address] [place] [address] Care Team Providers Care Color Sprayer Name Role Phone Stanley Schuster MD Primary [...] (07/23/2020): Added automatically from request for surgery [id number] Basal cell carcinoma of left side of nose 2019 Overview (06/16/2020): Added automatically from request for surgery [id number] Neoplasm of soft tissue 05/16/2020 Lesion of nose 05/16/2020 Elevated blood pressure reading 11/27/2019 Assessment & Plan (11/27/2019 8:56 AM PRINCIPAL SCIENTIST): The patient's elevated blood pressure on arrival was due to the acute pain of his presenting cholecystitis. His blood pressure has returned to normal since analgesics were administered without requiring any antihypertensive therapy. Will continue to monitor blood pressure for now, would attempt pain control for further elevated BP readings before administering antihypertensive therapy. Acute cholecystitis 11/27/2019 Assessment & Plan (11/27/2019 8:58 AM PRINCIPAL SCIENTIST): Cholecystectomy planned this afternoon per surgery. Cholecystitis 11/26/2019 Overview (11/27/2019): Added automatically from request for surgery [id number] Non compliance w medication regimen 06/09/2018 Tobacco abuse 06/09/2018 Assessment & Plan (06/09/2018 12:50 PM CDT): couselled regarding tobacco / discussed low dose ct scan for lung cancer screening declines Routine physical examination 06/07/2018 Other male erectile dysfunction 06/07/2018 Anxiety 06/07/2018 Depression Assessment & Plan (11/27/2019 8:56 AM PRINCIPAL SCIENTIST): Can continue home Paxil. Smoking Assessment & Plan (11/27/2019 8:57 AM PRINCIPAL SCIENTIST): Encourage smoking cessation. Patient declined nicotine replacement [...] on file Legal Sex Male 3:28 PM PRINCIPAL SCIENTIST Gender Identity Not on file Sexual Orientation Not on file Last Filed Vital Signs Vital Sign Reading Time Taken Comments Blood Pressure 127/85 01/01/2025 10:05 PM PRINCIPAL SCIENTIST Pulse 84 01/01/2025 10:05 PM PRINCIPAL SCIENTIST Temperature 36.7 C (98 F) 01/01/2025 6:05 PM PRINCIPAL SCIENTIST Respiratory Rate 20 01/01/2025 10:05 PM PRINCIPAL SCIENTIST Oxygen Saturation 97% 01/01/2025 10:05 PM PRINCIPAL SCIENTIST Inhaled Oxygen Concentration - - Weight 103 kg (227 lb) 01/01/2025 2:30 PM PRINCIPAL SCIENTIST Height 177.8 cm (5' 10) 01/01/2025 2:30 PM PRINCIPAL SCIENTIST Body Mass Index 32.57 01/01/2025 2:30 PM PRINCIPAL SCIENTIST Plan of Treatment Not on file Medical Devices Implanted Type Area Tanner Rotary Drum Continuous Process Device Identifier Shelf Expiration Date Model / Serial / Lot ensembli Allian 2752 [place] 2mm Ring Pin Ultrasonic Doppler 20mhz Assayer Helper Anastomosis Latex Free - [id number] Implanted:Qty: 1 on 08/27/2020 by Rufino Garland III, MD at [facility] Left: Face ensembli Allian [id number] 06/26/2024 2752 / / [id number] Procedures Procedure Name Priority Date/Time Associated Diagnosis Comments CT ABDOMEN PELVIS W CONTRAST ED 11/26/2019 5:21 PM PRINCIPAL SCIENTIST PSA SCREEN Routine 06/05/2018 8:25 AM CDT Elevated prostate specific antigen (PSA) from Last 3 Months or Most Recently Relevant to Health Maintenance Results * CT Abdomen Pelvis W Contrast (11/26/2019 5:21 PM PRINCIPAL SCIENTIST) Anatomical Region Laterality Modality Body N/A Computed Tomogra phy 11/26/2019 5:21 PM PRINCIPAL SCIENTIST Narrative 11/26/2019 6:22 PM PRINCIPAL SCIENTIST PROCEDURE INFORMATION: Exam: CT Abdomen And Pelvis With Contrast Exam date and time: 11/26/2019 5:21 PM Age: 64 years old Clinical indication: Patient HX: Generalized abdominal pain since Tuesday vomited once; Additional info: Nausea/vomiting TECHNIQUE: Imaging protocol: Computed tomography of the abdomen and pelvis with intravenous contrast. Contrast material: [id number]; Contrast volume: 100 ml; Contrast route: IV; [...] and pelvis with intravenous contrast. Contrast material: [id number]; Contrast volume: 100 ml; Contrast route: IV; [...] MD LAB BLOOD ORDERABLES Final Result [facility] [address] Department [place] [address] from Last 3 Months or Most Recently Relevant to Health Maintenance Insurance [facility] CHOICE PLUS [facility] CHOICE PLUS MEDICARE [facility] MEDICARE [facility] Advance Directives For more information, please contact: [phone] * Full Code (Latest Code Status on File) Date Activated Date Inactivated Comments 11/27/2019 4:50 PM 11/30/2019 2:50 PM * Full Code Date Activated Date Inactivated Comments 11/26/2019 9:04 PM 11/27/2019 4:50 PM Care Teams Color Sprayer Relationship Specialty Start Date End Date Satnley Schuster MD [address] [place] [address] PCP - General 11/26/19
--- OUTSIDE RECORDS SUMMARY | 2025-04-18 17:28 | XMS_ITS ---
Author Organization [facility] Address [address] [place] [address] Care Team Providers Care Field Crew Chief Name Role Phone Stanley Schuster MD Primary Care Provider + Active Problems Problem Noted Date Diagnosed Date Basal cell carcinoma of nose 07/23/2020 Overview (07/23/2020): Added automatically from request for surgery [id number] Basal cell carcinoma of left side of nose 2019 Overview (06/16/2020): Added automatically from request for surgery [id number] Neoplasm of soft tissue 05/16/2020 Lesion of nose 05/16/2020 Elevated blood pressure reading 11/27/2019 Assessment & Plan (11/27/2019 8:56 AM HEALTH MANAGEMENT CONSULTANT): The patient's elevated blood pressure on arrival was due to the acute pain of his presenting cholecystitis. His blood pressure has returned to normal since analgesics were administered without requiring any antihypertensive therapy. Will continue to monitor blood pressure for now, would attempt pain control for further elevated BP readings before administering antihypertensive therapy. Acute cholecystitis 11/27/2019 Assessment & Plan (11/27/2019 8:58 AM HEALTH MANAGEMENT CONSULTANT): Cholecystectomy planned this afternoon per surgery. Cholecystitis 11/26/2019 Overview (11/27/2019): Added automatically from request for surgery [id number] Non compliance w medication regimen 06/09/2018 Tobacco abuse 06/09/2018 Assessment & Plan (06/09/2018 12:50 PM CDT): couselled regarding tobacco / discussed low dose ct scan for lung cancer screening declines Routine physical examination 06/07/2018 Other male erectile dysfunction 06/07/2018 Anxiety 06/07/2018 Depression Assessment & Plan (11/27/2019 8:56 AM HEALTH MANAGEMENT CONSULTANT): Can continue home Paxil. Smoking Assessment & Plan (11/27/2019 8:57 AM HEALTH MANAGEMENT CONSULTANT): Encourage smoking cessation. Patient declined nicotine replacement [...]
[2025-04-18 17:29] VITALS: BP 142/91; PULSE 106; RESP 18; TEMP 35.7; O2SAT 94
[2025-04-18] MEDS: KETOROLAC 30 MG/ML VIAL (*BKC) IM (17:47)
--- NOTE | 2025-04-18 18:41 | ED.FALL ---
HPI - Fall General Chief Complaint: Fall Stated Complaint: laceration Time Seen by Provider: 04/18/25 17:28 Source: patient and family Mode of arrival: ambulatory Limitations: no limitations History of Present Illness HPI Narrative: This is a 69-year-old male presents after he slipped and fell off a ladder about 4ft hitting his head and landing on his left wrist causing swelling and pain with movement and palpation, no loss of consciousness does have a laceration to the right frontal scalp area and a small laceration to the right ear area patient is up-to-date with his tetanus rates his pain about a 6/10 no headache no blurry vision does have pain in the scalp area. No nausea vomiting no other injuries noted neurologically intact. complaint: fall Onset (ago): hour(s) Fall from: other Fall witnessed: no Place fall occurred: home Loss of consciousness: none Prolonged down time: no Symptoms prior to fall: none Context: tripped/slipped Location of injury: head and other Location of injury - extremities: Left: hand ( Wrist welling and tenderness with palpation and movement) Severity: moderate Severity scale (1-10): 6 Associated symptoms (after fall): denies Related Data Home Medications ?Medication ?Instructions ?Recorded ?Confirmed ?Last Taken ?Type atorvastatin 40 mg tablet 40 mg PO QPM 02/14/25 04/18/25 04/17/25 History Allergies Allergy/AdvReac Type Severity Reaction Status Date / Time codeine Allergy Severe Swelling Verified 04/18/25 17:33 of Lip/Tongue/Throat Review of Systems Review of Systems: All systems reviewed & are unremarkable except as noted in HPI and below PMFSH Past Medical History Medical History Patient denies medical problems Social History Social History Smoking status: Current every day smoker Exam Const: General: healthy appearing, no acute distress and alert Nutritional Appearance: well nourished and obese Orientation/consciousness: patient oriented x3 Limitations: no limitations HENMT: Head: normal to inspection Head images:  1. 2cm gaping laceration frontal right scalp area Outer ear/TM images:  1. small 0.5 laceration 9 gaping Face and sinus: normal facial exam Eyes: Conjunctivae: conjunctivae normal Pupils: Equal, round and reactive pupils present EOM: EOMs intact bilaterally Neck: Neck: normal visual inspection, no lymphadenopathy and no meningeal signs Chest: Chest palpation & inspection: normal inspection of the chest Resp: Effort & Inspection: normal respiratory effort Auscultation: clear to auscultation bilaterally Cardio: Rate: regular rate Rhythm: regular rhythm GI: GI Palp: Yes Soft to palpation Auscultation: normal bowel sounds Back/Spine/Pelvis: Back: no CVA tenderness Skin: Wounds: wounds noted Neuro: General: patient oriented x3, moves all extremities, no meningeal signs and no focal motor deficits Cranial nerves: Yes Nystagmus not present Speech: normal speech Gait exam (Neuro): Normal gait present Extrem: General: normal to inspection Other: tenderness and swelling left wrist with a brisk radial pulse on the the left Course Course Emergency Course: x-ray shows fracture of the left wrist, CT scan brain with no acute abnormalities , CT of the cervical spine showed no acute fractures. Patient received 30mg IM Toradol that improved his pain wrist splint was placed on the left wrist. Vital Signs Vital signs: Vital Signs Temperature 35.7 C L 04/18/25 17:29 Pulse Rate 106 H 04/18/25 17:29 Respiratory Rate 18 04/18/25 17:29 Blood Pressure 142/91 H 04/18/25 17:29 Pulse Oximetry 94 04/18/25 17:29 Oxygen Delivery Room Air 04/18/25 17:29 Temperature 35.7 C L 04/18/25 17:29 Pulse Rate 106 H 04/18/25 17:29 Respiratory Rate 18 04/18/25 17:29 Blood Pressure 142/91 H 04/18/25 17:29 Pulse Oximetry 94 04/18/25 17:29 Oxygen Delivery Room Air 04/18/25 17:29 Procedures Laceration Laceration 1: Date: 04/18/25 Time: 18:51 Site: scalp Side (If applicable): right Description: irregular Depth: simple, single layer Pre-repair: wound explored, irrigated and irrigated extensively ====== Skin Level ====== Skin layer closed with: chela ====== Subcutaneous Layer ====== ====== Muscle Layer ====== ====== Tendon Layer ====== Laceration 2: Date: 04/18/25 Time: 18:51 Side (If applicable): right ( Right ear is low with a 0.5mm mildly gaping laceration) Size (cm): 0.5 Description: linear ====== Skin Level ====== Skin layer closed with: dermabond ====== Subcutaneous Layer ====== ====== Muscle Layer ====== ====== Tendon Layer ====== Critical Care Time Critical Care Time Critical Care Time: No Discharge Plan Discharge Clinical Impression: Laceration Fracture of wrist Qualifiers: Encounter type: initial encounter Fracture type: closed Laterality: left Qualified Code(s): S62.102A - Fracture of unspecified carpal bone, left wrist, initial encounter for closed fracture Patient Disposition: Home Condition: Stable Instructions: Antibiotic Form, Laceration (ED), Wrist Fracture in Adults (ED), Head Injury (ED) Patient Language: Citizen Of [place] Prescriptions: No Action atorvastatin 40 mg tablet 40 mg PO QPM Follow-up/Referrals: Landen[facility]ley [Other]
[2025-04-18 19:05] VITALS: BP 130/83; PULSE 83; RESP 18; TEMP 36.4; O2SAT 97
== END 2025-04-18 19:07 | disposition home or self-care (01) ==
PROVIDERS: Emergency Provider Emergency Medicine
DX: S01.01XA Laceration without foreign body of scalp, initial encounter (principal); S62.102A Fracture of unspecified carpal bone, left wrist, initial encounter for closed fracture; S01.311A Laceration without foreign body of right ear, initial encounter; W11.XXXA Fall on and from ladder, initial encounter
CPT/HCPCS: 12001; 29125; 70450; 72125; 73110; 99284; J1885

== ENCOUNTER 2025-09-07 17:10 | Emergency (ER) | payer MEDICARE, OTHER, SELFPAY ==
--- OUTSIDE RECORDS SUMMARY | 2025-09-07 17:15 | XMS_ITS | Clinical Summary ---
Author Organization [facility] Address [address] [place] [address] Care Team Providers Care Accounting Methods Analyst Name Role Phone Stanley Schuster MD Primary [...] (07/23/2020): Added automatically from request for surgery [id number] Basal cell carcinoma of left side of nose 2019 Overview (06/16/2020): Added automatically from request for surgery [id number] Neoplasm of soft tissue 05/16/2020 Lesion of nose 05/16/2020 Elevated blood pressure reading 11/27/2019 Assessment & Plan (11/27/2019 8:56 AM TEXTILE MACHINE MAINTENANCE MECHANIC): The patient's elevated blood pressure on arrival was due to the acute pain of his presenting cholecystitis. His blood pressure has returned to normal since analgesics were administered without requiring any antihypertensive therapy. Will continue to monitor blood pressure for now, would attempt pain control for further elevated BP readings before administering antihypertensive therapy. Acute cholecystitis 11/27/2019 Assessment & Plan (11/27/2019 8:58 AM TEXTILE MACHINE MAINTENANCE MECHANIC): Cholecystectomy planned this afternoon per surgery. Cholecystitis 11/26/2019 Overview (11/27/2019): Added automatically from request for surgery [id number] Non compliance w medication regimen 06/09/2018 Tobacco abuse 06/09/2018 Assessment & Plan (06/09/2018 12:50 PM CDT): couselled regarding tobacco / discussed low dose ct scan for lung cancer screening declines Routine physical examination 06/07/2018 Other male erectile dysfunction 06/07/2018 Anxiety 06/07/2018 Depression Assessment & Plan (11/27/2019 8:56 AM TEXTILE MACHINE MAINTENANCE MECHANIC): Can continue home Paxil. Smoking Assessment & Plan (11/27/2019 8:57 AM TEXTILE MACHINE MAINTENANCE MECHANIC): Encourage smoking cessation. Patient declined nicotine replacement therapy at this time, encouraged to inform staff if he changes his mind. Encounters Date Type Department Care Team Description 07/03/2025 Telephone [facility] Orthopedics and Sports Medicine [address] [facility] [address] [place] [address] Arthur Cotto MD Wrist Injury from Last 3 Months Immunizations Immunization Administration [...] on file Legal Sex Male 3:28 PM TEXTILE MACHINE MAINTENANCE MECHANIC Gender Identity Not on file Sexual Orientation Not on file Obstetrics History Last Filed Vital Signs Vital Sign Reading Time Taken Comments Blood Pressure 127/85 01/01/2025 10:05 PM TEXTILE MACHINE MAINTENANCE MECHANIC Pulse 84 01/01/2025 10:05 PM TEXTILE MACHINE MAINTENANCE MECHANIC Temperature 36.7 C (98 F) 01/01/2025 6:05 PM TEXTILE MACHINE MAINTENANCE MECHANIC Respiratory Rate 20 01/01/2025 10:05 PM TEXTILE MACHINE MAINTENANCE MECHANIC Oxygen Saturation 97% 01/01/2025 10:05 PM TEXTILE MACHINE MAINTENANCE MECHANIC Inhaled Oxygen Concentration - - Weight 103 kg (227 lb) 01/01/2025 2:30 PM TEXTILE MACHINE MAINTENANCE MECHANIC Height 177.8 cm (5' 10) 01/01/2025 2:30 PM TEXTILE MACHINE MAINTENANCE MECHANIC Body Mass Index 32.57 01/01/2025 2:30 PM TEXTILE MACHINE MAINTENANCE MECHANIC Plan of Treatment Health Maintenance Due Date [...] Visit 65+ 2022 07/16/2019, 06/07/2018 Influenza Vaccine (#1) 2025 DTaP/Tdap/Td Vaccine (2 - Td or Tdap) 01/01/2035 Medical Devices Implanted Type Area Manager Mental Health Device Identifier Shelf Expiration Date Model / Serial / Lot [employer] Allpadmini 2752 Foard 2mm Ring Pin Ultrasonic Doppler 20mhz Java [id number] Architect Anastomosis Latex Free - [id number] Implanted:Qty: 1 on 08/27/2020 by Rufino Garland III, MD at [facility] Left: Face [employer] Theresa [id number] 06/26/2024 2752 / / [id number] Procedures Procedure Name Priority Date/Time Associated Diagnosis Comments CT ABDOMEN PELVIS W CONTRAST ED 11/26/2019 5:21 PM TEXTILE MACHINE MAINTENANCE MECHANIC PSA SCREEN Routine 06/05/2018 8:25 AM CDT Elevated prostate specific antigen (PSA) from Last 3 Months or Most Recently Relevant to Health Maintenance Results * CT Abdomen Pelvis W Contrast (11/26/2019 5:21 PM TEXTILE MACHINE MAINTENANCE MECHANIC) Anatomical Region Laterality Modality Body N/A Computed Tomogra phy 11/26/2019 5:21 PM TEXTILE MACHINE MAINTENANCE MECHANIC Narrative 11/26/2019 6:22 PM TEXTILE MACHINE MAINTENANCE MECHANIC PROCEDURE INFORMATION: Exam: CT Abdomen And Pelvis With Contrast Exam date and time: 11/26/2019 5:21 PM Age: 64 years old Clinical indication: Patient HX: Generalized abdominal pain since Tuesday vomited once; Additional info: Nausea/vomiting TECHNIQUE: Imaging protocol: Computed tomography of the abdomen and pelvis with intravenous contrast. Contrast material: [id number]; Contrast volume: 100 ml; Contrast route: IV; [...] and pelvis with intravenous contrast. Contrast material: [id number]; Contrast volume: 100 ml; Contrast route: IV; [...] CDT) PSA-Total 2.06 0.10 - 4.00 ng/mL [facility] Blood specimen (specimen) 06/05/2018 8:25 AM CDT 06/05/2018 9:13 PM CDT Narrative [facility] - 06/05/2018 9:49 PM CDT us Ochoa Dias MD LAB BLOOD ORDERABLES Final Result Performing Organization Address City/State/[facility] Co de Phone Number [facility] [id number] Department [place] [address] from Last 3 Months or Most Recently Relevant to Health Maintenance Insurance [facility] [address] [facility] [place] [address] MEDICARE [facility] MEDICARE [employer] [place] [place] [address] Advance Directives For more information, please contact: [phone] * Full Code (Latest Code Status on File) Date Activated Date Inactivated Comments 11/27/2019 4:50 PM 11/30/2019 2:50 PM * Full Code Date Activated Date Inactivated Comments 11/26/2019 9:04 PM 11/27/2019 4:50 PM Care Teams Accounting Methods Analyst Relationship Specialty Start Date End Date Stanley Schuster MD [address] [place] [address] [address] PCP - General 11/26/19
--- OUTSIDE RECORDS SUMMARY | 2025-09-07 17:15 | XMS_ITS ---
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 His blood pressure has returned to normal since analgesics were administered without requiring any antihypertensive therapy. Will continue to monitor blood pressure for now, would attempt pain control for further elevated BP readings before administering antihypertensive therapy. Acute cholecystitis 11/27/2019 Assessment & Plan (11/27/2019 8:58 AM RELIGIOUS HEALER): Cholecystectomy planned this afternoon per surgery. Cholecystitis 11/26/2019 Overview (11/27/2019): Added automatically from request for surgery [id number] Non compliance w medication regimen 06/09/2018 Tobacco abuse 06/09/2018 Assessment & Plan (06/09/2018 12:50 PM CDT): couselled regarding tobacco / discussed low dose ct scan for lung cancer screening declines Routine physical examination 06/07/2018 Other male erectile dysfunction 06/07/2018 Anxiety 06/07/2018 Depression Assessment & Plan (11/27/2019 8:56 AM RELIGIOUS HEALER): Can continue home Paxil. Smoking Assessment & Plan (11/27/2019 8:57 AM RELIGIOUS HEALER): Encourage smoking cessation. Patient declined nicotine replacement [...]
--- OUTSIDE RECORDS SUMMARY | 2025-09-07 17:15 | XMS_ITS | Encounter Summary ---
Author Organization [facility] Address [address] [place] [address] Phone Care Team Providers Care Business Intelligence Reporting Analyst Name Role Phone Ochoa Dias MD Primary Care Provider [phone] No, Physician Primary Care Provider [phone] Stanley Schuster MD Primary Care Provider + Encounter Details Date Type Department Care Team (Late st Contact Info) Description 07/18/2017 Orders Only [facility] [address] [place] [address] Ochoa Dias MD [address] [place] [address] [place] [address] Elevated prostate specific antigen (PSA) (Primary Dx); Routine lab draw Social History Tobacco Use Types Packs/Day Years Used Date Smoking Tobacco: Never Assessed Sex and Gender Information Value Date Recorded Sex Assigned at Not on file 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 Gender Identity Not on file Sexual Orientation Not on file documented as of this encounter Plan of Treatment Not on file documented as of this encounter Results * PSA screen (06/05/2018 8:25 AM CDT) PSA-Total 2.06 0.10 - 4.00 ng/mL [facility] Blood specimen (specimen) 06/05/2018 8:25 AM CDT 06/05/2018 9:13 PM CDT Narrative [facility] - 06/05/2018 9:49 PM CDT Ochoa Dias MD LAB BLOOD ORDERABLES Final Result [facility] [address] Department [place] [address] * (ABNORMAL) Lipid panel (06/05/2018 8:25 AM [...] MD LAB BLOOD ORDERABLES Final Result [facility] [address] Department of Laboratories [place] [id number] * Comprehensive metabolic panel (06/05/2018 8:25 AM [...] BLOOD ORDERABLES Final Result Performing Organization Address City/[facility]/ZIP Co de Phone Number [facility] [phone] Department [place] [address] * (ABNORMAL) CBC with auto differential (06/05/2018 8:25 AM CDT) WBC 6.7 3.8 - 9.9 K/cumm [facility] Hgb 16.3 13.0 - 17.5 g/dL [facility] Hct 50.6(H) 38.9 - 50.3 % [facility] Plt 203 150 - 400 K/cumm [facility] MPV 11.0 9.1 - 12.3 fL [facility] RBC 5.22 4.30 - 5.80 M/cumm [facility] MCV 96.9(H) 81.3 - 96.4 fL [facility] MCH 31.2 27.1 - 33.3 pg [facility] MCHC 32.2(L) 32.3 - 35.7 g/dL [facility] RDW CV 13.7 11.1 - 14.9 % [facility] RDW SD 49.4(H) 35.7 - 48.1 fL [facility] NRBC abs 0.02(H) 0.00 - 0.01 K/cumm [facility] Blood specimen (specimen) 06/05/2018 8:25 AM CDT 06/05/2018 9:13 PM CDT Narrative [facility] - 06/05/2018 9:41 PM CDT Ochoa Dias MD LAB BLOOD ORDERABLES Final Result Performing Organization Address City/[facility]/ZIP Co de Phone Number [facility] [address] Department [place] [address] documented in this encounter Visit Diagnoses Diagnosis Elevated prostate specific antigen (PSA)- Primary Routine lab draw Elevated prostate specific antigen (PSA) Routine lab draw documented in this encounter Care Teams Business Intelligence Reporting Analyst Relationship Specialty Start Date End Date Ochoa Dias MD [address] [place] [address] PCP - General 02/04/17 08/21/19 No, Physician PCP - General 08/22/19 11/25/19 Stanley Schuster MD [address] [facility] [place] [address] PCP - General 11/26/19 documented as of this encounter
[2025-09-07 17:16] VITALS: BP 139/77; PULSE 91; RESP 20; TEMP 36.9; O2SAT 98
--- NOTE | 2025-09-07 17:23 | ED.URI ---
HPI - URI/Sore Throat General Chief Complaint: Upper Respiratory Infection Stated Complaint: Nose/chest congestion/cough patient presents to the [facility] with complaints of significant nasal congestion with nasal discharge productive cough green-colored sputum. Also noted over the last 2 days having some fatigue and in general not feeling well. Patient reports symptoms started a week and a half ago. Patient does report using 2 bottles of Mucinex without relief of symptoms. Denies any known sick contacts. Denies any fever, chills, body aches, or dizziness does also note having some shortness of breath on exertion when going up stairs. Related Data Home Medications ?Medication ?Instructions ?Recorded ?Confirmed ?Last Taken ?Type atorvastatin 40 mg tablet 40 mg PO QPM 02/14/25 04/18/25 04/17/25 History paroxetine HCl 40 mg tablet mg PO 09/07/25 Unknown History Allergies Allergy/AdvReac Type Severity Reaction Status Date / Time codeine Allergy Severe Swelling Verified 04/18/25 17:33 of Lip/Tongue/Throat Review of Systems Constitutional: Constitutional: Reports as per HPI, Denies chills, Reports fatigue, Denies fever(s) and Denies weakness Eyes: Eyes: Reports no additional eye complaints ENT: Reports as per HPI, Denies vertigo, Denies dizziness, Reports nasal congestion and Reports sore throat Cardiovascular: Cardiovascular: Reports no additional cardiovascular complaints Respiratory: Respiratory: Reports as per HPI, Reports chest congestion, Reports cough, Denies dyspnea and Denies wheezing Comments: Shortness of breath on exertion Genitourinary: Genitourinary: Reports no additional male genitourinary complaints Musculoskeletal: Musculoskeletal: Reports as per HPI, Denies back pain and Denies myalgias Integumentary/Breasts: Skin/Breast: Reports as per HPI, Denies pruritus, Denies erythema and Denies rash Neurologic: Reports as per HPI, Denies vertigo, Denies dizziness, Reports headache(s) and Denies weakness Psychiatric: Psychiatric: Reports no additional psychiatric complaints Endocrine: Endocrine: Reports no additional endocrine complaints Hematologic/Lymphatic: Hematologic/Lymphatic: Reports no additional hematologic/lymphatic complaints Allergic/Immunologic: Allergic/Immunologic: Reports as per HPI Comments: seasonal allergy/sinus problems PMFSH Past Medical History Medical History Patient denies medical problems Social History Social History Smoking status: Current every day smoker Exam Const: General: healthy appearing and no acute distress Nutritional Appearance: well nourished Orientation/consciousness: patient oriented x3 Limitations: no limitations HENMT: Head: normal to inspection Ears: external ears normal and TM's normal bilaterally Face/Nose/Sinus: Normal external nose present, nares abnormal ( Moderate erythema and edema bilaterally) and Nasal discharge present (thick ) purulent Face and sinus: normal facial exam and sinus tenderness maxillary Mouth: Yes Normal oral and palatal mucosa present, Yes lip normal and Yes moist mucous membranes Throat: posterior oropharynx abnormal ( moderate erythema with no edema or exudate) Neck: Neck: normal visual inspection and no lymphadenopathy Resp: Effort & Inspection: normal respiratory effort Auscultation: clear to auscultation bilaterally Other: dry cough noted Cardio: Rate: regular rate Rhythm: regular rhythm Skin: General skin exam: normal color Rashes: no rashes Wounds: no wounds Neuro: General: patient oriented x3 and moves all extremities Speech: normal speech Gait exam (Neuro): Normal gait present Psych: Mental Status: mental status grossly normal Affect: normal affect Attitude: cooperative Course Course Level of Care: Express Care Visit Vital Signs Vital signs: Vital Signs Temperature 98.4 F 09/07/25 17:16 Pulse Rate 91 09/07/25 17:16 Respiratory Rate 20 09/07/25 17:16 Blood Pressure 139/77 09/07/25 17:16 Pulse Oximetry 98 09/07/25 17:16 Oxygen Delivery Room Air 09/07/25 17:16 Temperature 98.4 F 09/07/25 17:16 Pulse Rate 91 09/07/25 17:16 Respiratory Rate 20 09/07/25 17:16 Blood Pressure 139/77 09/07/25 17:16 Pulse Oximetry 98 09/07/25 17:16 Oxygen Delivery Room Air 09/07/25 17:16 MDM - URI/Sore Throat MDM Narrative Medical decision making narrative: The patient was evaluated by myself in the express care. History is obtained from patient who is an independent historian and physical exam was performed. Available medical records were reviewed at this time. Exam findings show no acute concerns or changes; patient is non-toxic appearing and is in no distress. Patient is appropriate for outpatient treatment and follow-up. I have evaluated and discussed social determinants of health with the patient that could potentially impact subsequent diagnosis and treatment plans. Differential diagnosis and treatment plan were discussed with the patient. Patient agrees with discussion and after shared medical decision making agrees with plan of care. All questions were answered to the patient's satisfaction. Differential Diagnosis Differential diagnosis: Likely upper respiratory infection, croup, otitis media, sinusitis, viral infection, bronchitis, influenza and pharyngitis Medical Records Attestation: I reviewed the patient's medical records. Discharge Plan Discharge Clinical Impression: Sinusitis Patient Disposition: Home Condition: Stable Instructions: Antibiotic Form, Sinusitis (ED) Additional Instructions: Take the antibiotics as directed for the entire course. Do not miss any doses. What you are taking antibiotics and is recommended to take a probiotic or have yogurt daily to return the good gut bacteria to your system. This can also help with acute diarrhea while taking antibiotics. It can take 24-48 hours for the antibiotics to start to relieve your symptoms continue to take these medications to help with various symptoms: Tylenol or Motrin for pain, headache, or fever Flonase/fluticasone or Nasacort/triamcinolone nasal spray- helps with congestion and nasal drainage. Sudafed/pseudoephedrine helps with sinus pain and congestion. Caution with high blood pressure. Use a humidifier or vaporizer at night. Drink plenty of water. 8-10 glasses per day. Mucinex/guaifenesinas directed and be sure to take with 8oz of water. Warm compresses over the forehead and cheeks to promote sinus drainage. Return to urgent care or go to the ER for new or worsening symptoms. Follow up with Primary provider if not improved after 1 week. Patient Language: Uzbek Prescriptions: New amoxicillin-pot clavulanate 875-125 mg tablet 1 tablet PO Q12H Qty: 20 0RF promethazine-DM 6.25-15 mg/5 mL syrup 5 ml PO Q4-6H PRN (Reason: cough) Qty: 118 0RF No Action paroxetine HCl 40 mg tablet PO atorvastatin 40 mg tablet 40 mg PO QPM Follow-up/Referrals: Landen,John Kee MD [Primary Care Provider] Time of Disposition: 17:24
== END 2025-09-07 17:28 | disposition home or self-care (01) ==
PROVIDERS: Emergency Provider Nurse Practitioner Family; PCP Internal Medicine
DX: J32.9 Chronic sinusitis, unspecified (principal); F17.200 Nicotine dependence, unspecified, uncomplicated
CPT/HCPCS: 99213; G0463